=== PATIENT | male | born 1980 | race Caucasian/White ===

== ENCOUNTER 2017-04-27 02:54 | Emergency (ER) | payer SELFPAY ==
[2017-04-27 03:02] VITALS: BP 129/78; PULSE 97; RESP 16; TEMP 98.4; O2SAT 96
[2017-04-27] MEDS ORDERED: ONDANSETRON HCL 4 MG/2 ML VIAL IV PUSH ONE (03:45)
[2017-04-27] MEDS ORDERED: SODIUM CHLOR 0.9% 1000 ML INJ 1,000 ML IV ONE (03:45)
--- NOTE | 2017-04-27 03:48 | PD ---
HPI Chief Complaint: GI Complaint Time Seen by Provider: 03:36 Travel History International Travel<30 days: No Contact w/Intl Traveler<30days: No Traveled to known affect area: No History of Present Illness HPI 36-year-old male presents with wanting resources to find where you can eat when you're homeless. He states he is afraid he is going to get malnourished if he doesn't eat. He denies any vomiting or diarrhea or any active complaints at this time. He states that he just got released from group home and ate and drank there earlier today. [facility] Past Medical History Medical History: Denies Significant Hx Diminished Hearing: No Past Surgical History Surgical History: No Previous Surgery Social History Alcohol Use: No Tobacco Use: No (never) Substance Use: No Allergies-Medications (Allergen,Severity, Reaction): Coded Allergies: No Known Allergies (Unverified , 04/27/17) Reported Meds & Prescriptions Reported Meds & Active Scripts Active No Active Prescriptions or Reported Medications Review of Systems Except as stated in HPI: all other systems reviewed are Neg Physical Exam Narrative GENERAL: Well-nourished, well-developed patient. SKIN: Warm and dry. HEAD: Normocephalic and atraumatic. EYES: No injection or drainage. ENT: No nasal drainage noted. NECK: Supple, trachea midline. CARDIOVASCULAR: Regular rate and rhythm RESPIRATORY: No increased effort. No accessory muscle use. GASTROINTESTINAL: Abdomen soft, non-tender, nondistended. NEUROLOGICAL: Awake and alert. Motor and sensory grossly within normal limits. Normal speech. Data Data Last Documented VS Vital Signs Date Time Temp Pulse Resp B/P Pulse Ox O2 Delivery O2 Flow Rate FiO2 04/27/17 03:02 98.4 97 16 129/78 96 Room Air Orders Ondansetron Inj (Zofran Inj) (04/27/17 03:45) Sodium Chlor 0.9% 1000 Ml Inj (Ns 1000 M (04/27/17 03:45) Oral Rehydration (04/27/17 03:45) MDM Medical Decision Making Medical Screen Exam Complete: Yes Emergency Medical Condition: No Differential Diagnosis Well exam check, possible dehydration or electrolyte abnormality Narrative Course Patient will be given homeless fpc information, given oral challenge here tolerating liquids and crackers, Patient denies any new complaints, all questions answered. Patient knows that follow up is incumbent on them and to return to the emergency room immediately if new or worsening symptoms develop. Patient given strict return precautions, vitals reviewed and are normal, agrees to further workup as an outpatient. Diagnosis Primary Impression: Well adult exam Patient Instructions: General Instructions Additional Instructions: Set up a primary care physician, return with any urgent need, stay hydrated Med/Other Pt SpecificInfo: No Change to Meds Scripts No Active Prescriptions or Reported Meds Disposition: 01 DISCHARGE HOME Condition: Stable Joseline Esquivel MD Apr 27, 2017 03:48
== END 2017-04-27 05:53 | disposition home or self-care (01) ==
LOC: NEPC 02:54
DX: Z03.89 Encounter for observation for other suspected diseases and conditions ruled out (principal); Z59.0 Homelessness
CPT/HCPCS: 99282